=== PATIENT | male | born 1990 | race Caucasian/White ===

== ENCOUNTER 2016-12-31 00:04 | Emergency (ER) | payer OTHER ==
[~2016-12-31] VITALS: Ht 167.6 cm; Wt 59.0 kg
[2016-12-31] MEDS ORDERED: IBUPROFEN 200200 M1 PO (00:09)
[2016-12-31] MEDS ORDERED: ULTRAM 50MG TAB50 MG PO (02:28)
[2016-12-31] MEDS ORDERED: KEFLEX500 MG PO (02:30)
[2016-12-31 02:42] VITALS: BP 132/75
== END 2016-12-31 02:45 | disposition home or self-care (01) ==
LOC: ER 00:04
DX: S02.40DA Maxillary fracture, left side, initial encounter for closed fracture (principal); F10.99 Alcohol use, unspecified with unspecified alcohol-induced disorder; W13.8XXA Fall from, out of or through other building or structure, initial encounter; Y93.89 Activity, other specified; Y92.89 Other specified places as the place of occurrence of the external cause; Y99.8 Other external cause status